=== PATIENT | male | born 2000 | race Hispanic/Latino ===

== ENCOUNTER 2021-03-07 02:02 | Emergency (ER) | payer OTHER, SELFPAY ==
[2021-03-07] MEDS ORDERED: Ondansetron PF 4 MG/2 ML Vial ONE (04:07)
== END 2021-03-07 06:15 | disposition home or self-care (01) ==
LOC: CSHERS 02:02
DX: F10.129 Alcohol abuse with intoxication, unspecified (principal)
CPT/HCPCS: 96374; J2405